=== PATIENT | male | born 1990 | race Caucasian/White ===

== ENCOUNTER 2019-09-30 12:32 | Emergency (ER) | payer MEDICAID ==
[~2019-09-30] VITALS: Ht 165.1 cm; Wt 68.0 kg
[2019-09-30 12:40] VITALS: BP 117/84
[2019-09-30] MEDS ORDERED: TAMS-11 PO (12:44)
[2019-09-30] MEDS ORDERED: HYDR-3281 PO (12:44)
== END 2019-09-30 15:48 | disposition left against medical advice (07) ==
LOC: ER 12:32
DX: Z53.21 Procedure and treatment not carried out due to patient leaving prior to being seen by health care provider (principal)